=== PATIENT | female | born 1950 ===

== ENCOUNTER 2023-05-27 04:58 | Day surgery (SDC) | payer OTHER ==
[~2023-05-27 04:58] MED LIST: ADULT LOW DOSE81 M1 PO; CALAN PO; CRESTOR10 MG PO; PRILOSEC OTC20 MG PO; SYNTHROID50 MCG PO
[2023-05-27] MEDS ORDERED: TRAM1TAB98 PO (09:27)
[2023-05-27] MEDS ORDERED: MACROBID 100 M100 MG PO (09:29)
== END 2023-05-27 11:45 | disposition home or self-care (01) ==
LOC: CIR.AMB 04:58
PROVIDERS: ATTEND Obstetrics & Gynecology Gynecology
DX: N81.11 Cystocele, midline (principal); N81.12 Cystocele, lateral; I10 Essential (primary) hypertension; Z20.822 Contact with and (suspected) exposure to COVID-19; K46.9 Unspecified abdominal hernia without obstruction or gangrene